=== PATIENT | male | born 1990 | race African-American/Black ===

== ENCOUNTER 2018-03-28 16:52 | Outpatient (CLI) | payer BC | END 2018-03-28 16:53 | disposition home or self-care (01) | LOC: CTENTCT 16:52 | PROVIDERS: ATTEND Otolaryngology Plastic Surgery within the Head & Neck | DX: J01.81 Other acute recurrent sinusitis (principal) | CPT/HCPCS: 70486 ==

== ENCOUNTER 2018-12-11 06:37 | Day surgery (SDC) | payer BC ==
[2018-12-10 14:00] VITALS: BMI 25.1
[2018-12-11] MEDS ORDERED: Oxymetazoline HCl 0.05% ( 15 ML ) ONE ×2 (08:34→08:45)
[2018-12-11] MEDS ORDERED: Lidocaine 1% w/Epinephrine 1:100K 20 ML VIAL ONE (08:45)
[2018-12-11] MEDS ORDERED: HYDROmorphone 2 MG/ML VIAL ONE (08:50)
[2018-12-11] MEDS ORDERED: Fentanyl 250 MCG/5 ML VIAL ONE (08:50)
[2018-12-11] MEDS ORDERED: Ferric Subsulfate 8 ML BOT ONE (09:16)
[2018-12-11] MEDS ORDERED: methylPREDNISolone Acetate 40 mg/ml Vial ONE (09:23)
[2018-12-11] MEDS ORDERED: hydrALAZINE 20 MG/ML VIAL ONE (10:19)
[2018-12-11] MEDS ORDERED: Fentanyl 100 MCG/2 ML VIAL ONE ×2 (10:21→10:36)
[2018-12-11] MEDS ORDERED: Hydrocodone-Acetamin 15 ML UDCUP ONE (11:41)
[2018-12-11] MEDS ORDERED: Ondansetron ODT 4 MG TAB ONE (11:50)
[2018-12-11] MEDS ORDERED: Promethazine HCl 25 MG/ML VIAL ONE (13:25)
[2018-12-11] MEDS ORDERED: Glycopyrrolate 0.2 MG/ML 5 ML SYRINGE ONE (13:49)
[2018-12-11] MEDS ORDERED: Metoprolol Tartrate 5 MG/5 ML VIAL ONE (13:49)
[2018-12-11] MEDS ORDERED: Rocuronium Bromide 10 MG/ML (10ML VIAL) ONE (13:49)
[2018-12-11] MEDS ORDERED: PROPOFOL 200 MG/20 ML VIAL ONE (13:49)
[2018-12-11] MEDS ORDERED: Lidocaine 1% PF 5 ML VIAL ONE (13:49)
[2018-12-11] MEDS ORDERED: Ondansetron PF 4 MG/2 ML Vial ONE (13:49)
[2018-12-11] MEDS ORDERED: Dexamethasone 20 MG/5 ML VIAL ONE (13:49)
--- NOTE | 2018-12-12 00:03 | OP ---
DATE OF PROCEDURE: 12/11/2018 PREOPERATIVE DIAGNOSES: 1. Chronic rhinosinusitis. 2. Bilateral inferior turbinate hypertrophy. 3. Nasal obstruction. 4. Chronic adenotonsillitis. 5. Adenotonsillar hypertrophy. POSTOPERATIVE DIAGNOSES: 1. Chronic rhinosinusitis. 2. Bilateral inferior turbinate hypertrophy. 3. Nasal obstruction. 4. Chronic adenotonsillitis. 5. Adenotonsillar hypertrophy. PROCEDURES PERFORMED: 1. Bilateral endoscopic sinus surgery, total ethmoidectomies. 2. Bilateral endoscopic sinus surgery, maxillary antrostomies. 3. Right endoscopic sinus surgery, frontal sinusotomies. 4. Bilateral inferior turbinate submucosal resection. 5. Tonsillectomy and adenoidectomy. ESTIMATED BLOOD LOSS: 20 mL. COMPLICATIONS: None. ANESTHESIA: GETA. DESCRIPTION OF PROCEDURE: After consent was obtained, the patient was identified, brought to the operating room, and placed on the operating table in the supine position. General endotracheal anesthesia and intravenous access were obtained and we proceeded with positioning the patient for oropharyngeal surgery. Oropharyngeal exposure was obtained with a Markel-Hector mouth gag after a head drape was placed and secured with a towel clip. The Markel-Hector mouth gag was then suspended from the Leger tray and palatal elevation was achieved with a red rubber catheter. The right tonsil was addressed first. We used a curved Allis to grasp the tonsil and retract it medially as an anterior pillar incision was made. The retrotonsillar fascial plane was then established and blunt dissection was performed with the suction cautery. Blood vessels were anticipated, identified, and cauterized as they were encountered. Ultimately, dissection was carried to the posterior tonsillar pillar mucosa which was incised hemostatically, as well as the base of tongue connection. The tonsil was then passed off as a specimen and bleeding points within the tonsillar bed were cauterized under direct visualization. We subsequently turned our attention to the contralateral side, where using a similar technique, a near identical procedure was performed. Again, the tonsil was grasped and retracted medially with a curved Allis. The retrotonsillar fascial plane was established and while the anterior pillar was retracted medially. The hemostatic blunt dissection of the tonsil with a suction cautery was performed with blood vessels anticipated, identified, and cauterized as they were encountered. Again, dissection continued to the base of tongue and posterior tonsillar pillar mucosa which was incised in a hemostatic fashion. The tonsillar beds were then carefully inspected and bleeding points were identified and cauterized with a suction cautery. After this portion of the procedure, hemostasis was completely obtained. Under direct mirror visualization, we visualized the adenoid pad. Under direct mirror visualization, we removed the bulk of the adenoid tissue with the adenoid curette. We then packed the nasopharynx for an appropriate period of time with [id number] tonsillar sponges. After a period of observation, we removed the pack. Under indirect mirror visualization, we obtained hemostasis and vaporization of residual adenoid tissue with electrocautery. The patient's oral cavity was copiously irrigated with iced saline and subsequently suctioned. After completion of the procedure, the nasal cavity and oropharynx were irrigated and suctioned as were the gastric contents. The patient was then awakened and transferred to the recovery room where the patient remained in stable condition prior to discharge to Day Stay. Following this, the patient was placed in the beach chair position, was prepped and draped for standard nasal procedure and Afrin pledgets removed from the nasal cavity. Following this, a 0-degree endoscope was advanced into the nasal cavity. 1% lidocaine with 1:100,000 epinephrine was injected into the inferior turbinates, middle turbinates, and lateral nasal wall bilaterally. Following this, the Wingdale elevator was used to medialize the middle turbinates and expose the uncinate process bilaterally. Following this, the uncinate process was anteriorly fractured using a ball-ended probe and then was removed using the straight microdebrider and up-biting Blakesley forceps bilaterally. Following this, the natural maxillary sinus ostia was identified and was then gently widened using the curved microdebrider and straight Blakesley forceps bilaterally. Following this, the ethmoidal bulla was identified bilaterally and was punctured on its medial and inferior aspect with microdebrider. Following this, a microdebrider was used along with the up-biting Blakesley forceps to remove the ethmoidal bulla and open the anterior ethmoidal cells. Following this, the grand lamella was identified bilaterally and was punctured into the posterior ethmoidal cells using 0-degree microdebrider. Working from posterior to anterior, the ethmoidal cells were opened bilaterally. Following this, the 45-degree endoscope and curved microdebrider were used to further open the anterior ethmoidal cells bilaterally. On the right side, the frontal sinus ostia was identified and was widened using the curved microdebrider. Following this, the inferior turbinates were punctured with a submucosal microdebrider blade and submucosal resection was performed of the anterior and inferior portions of the inferior turbinates bilaterally. Following this, the nasal cavity was irrigated. Mirapex was placed in the middle meatus. The patient tolerated the procedure well. Job ID: [id number]
== END 2018-12-11 11:06 | disposition home or self-care (01) ==
LOC: SDC 06:37
PROVIDERS: ATTEND Otolaryngology Plastic Surgery within the Head & Neck
PROC: 0CTPXZZ Resection of Tonsils, External Approach (ICD-10-PCS; principal; 2018-12-11)
PROC: 09BU8ZZ Excision of Right Ethmoid Sinus, Via Natural or Artificial Opening Endoscopic (ICD-10-PCS; principal; 2018-12-11)
PROC: 099Q8ZZ Drainage of Right Maxillary Sinus, Via Natural or Artificial Opening Endoscopic (ICD-10-PCS; principal; 2018-12-11)
PROC: 0CTQ0ZZ Resection of Adenoids, Open Approach (ICD-10-PCS; principal; 2018-12-11)
PROC: 09TL0ZZ Resection of Nasal Turbinate, Open Approach (ICD-10-PCS; principal; 2018-12-11)
PROC: 09QT8ZZ Repair Left Frontal Sinus, Via Natural or Artificial Opening Endoscopic (ICD-10-PCS; principal; 2018-12-11)
PROC: 099R8ZZ Drainage of Left Maxillary Sinus, Via Natural or Artificial Opening Endoscopic (ICD-10-PCS; principal; 2018-12-11)
PROC: 09QS8ZZ Repair Right Frontal Sinus, Via Natural or Artificial Opening Endoscopic (ICD-10-PCS; principal; 2018-12-11)
PROC: 09BV8ZZ Excision of Left Ethmoid Sinus, Via Natural or Artificial Opening Endoscopic (ICD-10-PCS; principal; 2018-12-11)
DX: J32.4 Chronic pansinusitis (principal); J34.3 Hypertrophy of nasal turbinates; J34.89 Other specified disorders of nose and nasal sinuses; J35.03 Chronic tonsillitis and adenoiditis
CPT/HCPCS: 88304; J0131; J0360; J1030; J1100; J1170; J2001; J2405; J2550; J2704; J3010; Q0162

== ENCOUNTER 2018-12-16 23:31 | Emergency (ER) | payer BC ==
[2018-12-16] MEDS ORDERED: Ondansetron ODT 4 MG TAB ONE (23:56)
[2018-12-17 00:10] LABS: #Lymphocytes 1.2 thou/uL (1.20-3.40); #Monocytes 0.8 thou/uL (0.11-0.59); #Neutrophils 3.9 thou/uL (1.40-6.50); %Basophils 0.7 % (0.0-1.0); %Eosinophils 0.7 % (0.0-10.0); %Lymphocytes 19.4 % (21.0-51.0); %Monocytes 13.5 % (0.0-10.0); %Neutrophils 65.6 % (42.0-75.0); Hemoglobin 17.4 g/dL (14.0-18.0); Mean Corpuscular HGB CONC 33.8 g/dL (32.0-36.0); Mean Corpuscular Hemoglobin 30.5 pg (27.0-31.0); Mean Corpuscular Volume 90.4 fL (78.0-98.0); Mean Platelet Volume 7.5 fL (7.4-10.4); Platelet Count 275 thou/uL (130-400); RBC Distribution Width 11.9 % (11.5-14.5); Red Blood Cell (RBC) Count 5.69 mill/uL (4.70-6.10)
[2018-12-17] MEDS ORDERED: Ketorolac Tromethamine 30 MG/ML VIAL ONE (00:41)
== END 2018-12-17 01:27 | disposition home or self-care (01) ==
LOC: ERS 23:31
DX: J95.830 Postprocedural hemorrhage of a respiratory system organ or structure following a respiratory system procedure (principal)
CPT/HCPCS: 36415; 85025; 96372; J1885; Q0162